=== PATIENT | female | born 1980 | race Caucasian/White ===

== ENCOUNTER → 2024-05-03 09:21 | Outpatient (CLI) | payer OTHER, SELFPAY ==
[2024-05-03 19:46] LABS: Add Manual Diff / Slide Review NO; Basophils Absolute Auto 100 /uL (0-100); Basophils Percent Auto 1.5 % (0-2); Eosinophils Absolute Auto 200 /uL (0-450); Eosinophils Percent Auto 4.6 % (2-4); Hematocrit 39.8 % (36-46); Hemoglobin 13.6 g/dL (12.0-16.0); Lymphocytes Absolute Auto 1500 /uL (1100-4500); Lymphocytes Percent Auto 37.1 % (25-40); Mean Corpuscular HGB Conc 34.1 % (30-36); Mean Corpuscular Hemoglobin 31.8 PG (26-34); Mean Corpuscular Volume 93.3 fL (80-100); Monocytes Absolute Auto 700 /uL (0-900); Monocytes Percent Auto 16.7 % (3-14); Neutrophils Absolute Auto 1600 /uL (1500-7000); Neutrophils Percent Auto 40.1 % (50-75); Platelet Count 308 X10^3/uL (150-400); Red Blood Cell Count 4.27 X10^6/uL (4.0-5.2); Red Cell Distribution Width 13.7 % (11.6-14.8); White Blood Cell Count 4.1 X10^3/uL (4.5-11.0)
[2024-05-03 19:59] LABS: Alanine Aminotransferase 49 IU/L (<35); Albumin 4.1 g/dL (3.5-5.0); Albumin Globulin Ratio 1.4 (1.0-2.8); Alkaline Phosphatase 60 U/L (38-126); Aspartate Aminotransferase 60 IU/L (14-36); BUN Creatinine Ratio 38.5 (6-22); Bilirubin Total 0.5 mg/dL (0.2-1.3); Blood Urea Nitrogen 30 mg/dL (7-17); Calcium 9.5 mg/dL (8.4-10.2); Chloride 82 mmol/L (98-107); Cholesterol 293 mg/dL (140-199); Estimated Glomerular Filt Rate > 60 mL/min (>60); Glucose 90 mg/dL (70-100); HEMOLYSIS < 15 (0-50); Sodium 131 mmol/L (137-145); Total Protein 7.1 g/dL (6.3-8.2); Triglycerides 75 mg/dL (35-150)
[2024-05-03 20:29] LABS: TSH w/ Reflex to FT4 0.09 uIU/mL (0.47-4.68)
[2024-05-03 21:11] LABS: HDL Cholesterol 131 mg/dL (40-60); LDL Cholesterol Calculated 147 mg/dL (<100)
[2024-05-03 22:21] LABS: Potassium 2.7 mmol/L (3.4-5.1)
[2024-05-03 22:22] LABS: Carbon Dioxide 43 mmol/L (22-32)
[2024-05-03 23:14] LABS: Free T4, Direct Thyroxine 1.42 ng/dL (0.78-2.19)
== END ==
PROVIDERS: PCP Physician Assistant Medical; Visit Provider Physician Assistant Medical
DX: G25.81 Restless legs syndrome (principal); G47.00 Insomnia, unspecified; T78.40XA Allergy, unspecified, initial encounter; F32.A Depression, unspecified; E87.6 Hypokalemia; R21 Rash and other nonspecific skin eruption
CPT/HCPCS: 80053; 80061; 84439; 84443; 85025

== ENCOUNTER → 2024-05-04 10:23 | Outpatient (CLI) | payer OTHER, SELFPAY ==
[2024-05-04 20:00] LABS: HEMOLYSIS < 15 (0-50); Iron 143 ug/dL (37-170)
[2024-05-04 20:01] LABS: BUN Creatinine Ratio 35.2 (6-22); Blood Urea Nitrogen 25 mg/dL (7-17); Calcium 10.4 mg/dL (8.4-10.2); Carbon Dioxide 36 mmol/L (22-32); Chloride 87 mmol/L (98-107); Estimated Glomerular Filt Rate > 60 mL/min (>60); Glucose 95 mg/dL (70-100); HEMOLYSIS 19 (0-50); Potassium 3.1 mmol/L (3.4-5.1); Sodium 131 mmol/L (137-145)
[2024-05-04 20:10] LABS: Percent Iron Saturation 35 % (15-50); Total Iron Binding Capacity 410 ug/dL (265-497); Transferrin 375 mg/dL (206-381)
[2024-05-04 20:55] LABS: Cortisol AM (Before 10AM) 15.6 ug/dL (4.46-22.7)
== END ==
PROVIDERS: PCP Physician Assistant Medical; Visit Provider Family Medicine
DX: E03.9 Hypothyroidism, unspecified (principal); E87.1 Hypo-osmolality and hyponatremia; R06.89 Other abnormalities of breathing; E87.6 Hypokalemia
CPT/HCPCS: 80048; 82088; 82533; 83540; 83550; 84244; 86376

== ENCOUNTER → 2024-05-12 08:30 | Outpatient (CLI) | payer OTHER, SELFPAY | PROVIDERS: PCP Physician Assistant Medical; Referring Provider Family Medicine; Visit Provider Family Medicine | DX: E03.9 Hypothyroidism, unspecified (principal); E87.1 Hypo-osmolality and hyponatremia; R06.89 Other abnormalities of breathing | CPT/HCPCS: 82533 ==

== ENCOUNTER → 2024-10-03 07:53 | Outpatient (CLI) | payer OTHER, SELFPAY ==
--- NOTE | 2024-10-03 07:54 | DI.MG.S_ITS ---
BILATERAL DIGITAL SCREENING MAMMOGRAM 3D/2D WITH CAD WITH AUGMENTATION: 10/03/2024 CLINICAL: Routine screening. Comparison is made to exam dated: 03/12/2023 mammogram - outside location. The breasts are heterogeneously dense, which may obscure small masses (category c / 51-75% glandular tissue). Current study was also evaluated with a Computer Aided Detection (CAD) system. Bilateral breast implants are stable and intact. No significant masses, calcifications, or other findings are seen in either breast. There has been no significant interval change. IMPRESSION: NEGATIVE There is no mammographic evidence of malignancy. A 1 year screening mammogram is recommended. Based on the Tyrer Cuzick model (a risk assessment model) the patient's lifetime risk is 15.7% and her 10 year risk is 3.1%. According to the ACR, ACS, and NCCN guidelines, an annual breast MRI exam along with mammogram is recommended if the patient's lifetime risk is 20% or greater. This exam was interpreted at Station ID: [id number]. NOTE: For mammograms, a report in lay terms will be sent to the patient. Approximately 15% of breast malignancies will not be visualized mammographically. In the management of a palpable breast mass, a negative mammogram must not discourage biopsy of a clinically suspicious lesion. Electronically Signed By: Wanda Aly M.D., Ph.D. norma/froy:10/04/2024 09:13:34 letter sent: Normal Exam ACR BI-RADS Category 1: Negative
== END ==
LOC: MAMMO 07:53
PROVIDERS: PCP Physician Assistant Medical; Referring Provider Physician Assistant Medical; Visit Provider Physician Assistant Medical
DX: Z12.31 Encounter for screening mammogram for malignant neoplasm of breast (principal); R92.333 Mammographic heterogeneous density, bilateral breasts
CPT/HCPCS: 77063; 77067

== ENCOUNTER → 2024-12-29 10:30 | Outpatient (CLI) | payer OTHER, SELFPAY ==
[2024-12-29 19:25] LABS: Add Manual Diff / Slide Review NO; Basophils Absolute Auto 0 /uL (0-100); Basophils Percent Auto 0.9 % (0-2); Eosinophils Absolute Auto 100 /uL (0-450); Eosinophils Percent Auto 3.2 % (2-4); Hematocrit 40.2 % (36-46); Hemoglobin 13.7 g/dL (12.0-16.0); Lymphocytes Absolute Auto 1100 /uL (1100-4500); Lymphocytes Percent Auto 26.1 % (25-40); Mean Corpuscular HGB Conc 34.2 % (30-36); Mean Corpuscular Hemoglobin 30.5 PG (26-34); Mean Corpuscular Volume 89.4 fL (80-100); Monocytes Absolute Auto 600 /uL (0-900); Neutrophils Absolute Auto 2400 /uL (1500-7000); Neutrophils Percent Auto 55.8 % (50-75); Platelet Count 352 X10^3/uL (150-400); Red Blood Cell Count 4.49 X10^6/uL (4.0-5.2); Red Cell Distribution Width 14.7 % (11.6-14.8); White Blood Cell Count 4.4 X10^3/uL (4.5-11.0)
[2024-12-29 19:35] LABS: Alanine Aminotransferase 32 IU/L (<35); Albumin 4.6 g/dL (3.5-5.0); Albumin Globulin Ratio 1.5 (1.0-2.8); Alkaline Phosphatase 64 U/L (38-126); Aspartate Aminotransferase 42 IU/L (14-36); BUN Creatinine Ratio 32.5 (6-22); Bilirubin Total 0.5 mg/dL (0.2-1.3); Blood Urea Nitrogen 27 mg/dL (7-17); Calcium 10.5 mg/dL (8.4-10.2); Cholesterol 297 mg/dL (140-199); Estimated Glomerular Filt Rate > 60 mL/min (>60); Globulin 3.1 g/dL (1.7-4.1); Glucose 95 mg/dL (70-100); HDL Cholesterol 102 mg/dL (40-60); HEMOLYSIS < 15 (0-50); LDL Cholesterol Calculated 178 mg/dL (<100); Sodium 129 mmol/L (137-145); Total Protein 7.7 g/dL (6.3-8.2); Triglycerides 85 mg/dL (35-150)
[2024-12-29 19:42] LABS: Carbon Dioxide 39 mmol/L (22-32)
[2024-12-29 20:12] LABS: TSH w/ Reflex to FT4 0.18 uIU/mL (0.47-4.68)
[2024-12-29 20:38] LABS: Chloride 76 mmol/L (98-107); Potassium 2.5 mmol/L (3.4-5.1)
== END ==
PROVIDERS: PCP Physician Assistant Medical; Visit Provider Physician Assistant Medical
DX: R79.89 Other specified abnormal findings of blood chemistry (principal); E03.9 Hypothyroidism, unspecified; E87.1 Hypo-osmolality and hyponatremia; E87.6 Hypokalemia; D72.819 Decreased white blood cell count, unspecified; R06.89 Other abnormalities of breathing
CPT/HCPCS: 80053; 80061; 84439; 84443; 85025

== ENCOUNTER → 2025-04-17 13:55 | Outpatient (CLI) | payer OTHER, SELFPAY ==
--- NOTE | 2025-04-17 14:23 | DI.MRI.S_ITS ---
PROCEDURE: MR ANKLE LT WO CON INDICATIONS: left ankle pain, evaluate for peroneal tendonitis TECHNIQUE: Noncontrast sagittal T1 spin echo and T2 fast spin echo with fat saturation, axial proton density fast spin echo and T2 fast spin echo with fat saturation, coronal T1 spin echo and T2 fast spin echo with fat saturation through the ankle/hindfoot. COMPARISON: None. FINDINGS: Image quality: Excellent Tendons: Trace tenosynovitis of the posterior tibialis, and the flexor digitorum longus. Moderate tenosynovitis of the flexor hallucis longus, at the master knot of Sarabjit. The extensor tendons are unremarkable. Mild tenosynovitis of the peroneal tendons, with longitudinal split tear of the peroneal brevis. There is low-grade longitudinal split tear of the peroneal longus, at the level of the calcaneus (04:27). The distal Achilles tendon is unremarkable. Ligaments: The anterior and posterior tibiofibular ligaments are intact. Full- thickness tear of the anterior talofibular ligament. The posterior talofibular ligament is intact. Mild sprain of the deep portion deltoid ligament. 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 Plantar fascia: Unremarkable Muscles: Normal in signal Bones: No acute fracture. 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 There is slight posterior subluxation of the calcaneus with respect to the talus. 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 Small tibiotalar and posterior subtalar effusion. IMPRESSION: 1. Longitudinal split tear of the peroneal brevis and the peroneal longus. 2. Full-thickness tear of the anterior talofibular ligament. 3. 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 4. 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 Os trigonum syndrome. Dictated by: Jazzmine Zapata M.D. on 04/18/2025 at 10:23 Approved by: Jazzmine Zapata M.D. on 04/18/2025 at 10:36
== END ==
LOC: MRI 13:55
PROVIDERS: PCP Physician Assistant Medical; Referring Provider Physician Assistant Surgical; Visit Provider Physician Assistant Surgical
DX: M76.72 Peroneal tendinitis, left leg (principal); Q68.8 Other specified congenital musculoskeletal deformities; M25.572 Pain in left ankle and joints of left foot; S93.492A Sprain of other ligament of left ankle, initial encounter; S93.422A Sprain of deltoid ligament of left ankle, initial encounter; S96.812A Strain of other specified muscles and tendons at ankle and foot level, left foot, initial encounter; G89.29 Other chronic pain
CPT/HCPCS: 73721